=== PATIENT | male | born 1995 | race Caucasian/White ===

== ENCOUNTER 2023-10-19 18:20 | Emergency (ER) | payer BC, SELFPAY ==
[2023-10-19 18:29] VITALS: BP 131/71
[2023-10-19 18:46] LABS: Urine Albumin Trace (Neg - Trace); Urine Bilirubin Negative (Negative); Urine Character Clear (Clear); Urine Color Yellow; Urine Glucose Negative (Negative); Urine Ketone Negative (Negative); Urine Leukocyte Negative (Negative); Urine Nitrite Negative (Negative); Urine Occult Blood Negative (Negative); Urine Urobilinogen Negative (Neg - 1+)
[2023-10-19 18:52] LABS: % Basophils 0.8 % (0-2); % Immature Granulocytes 0.1 % (0-0.5); % Lymphocytes 34.3 % (20.5-51.1); % Monocytes 9.4 % (1.7-9.3); % Neutrophils 43.4 % (42.2-75.2); Absolute Basophils 0.1 10^3/uL (0-0.2); Absolute Eosinophils 0.9 10^3/uL (0-0.7); Absolute Lymphocytes 2.7 10^3/uL (1.2-3.4); Absolute Monocytes 0.7 10^3/uL (0.1-0.6); Absolute Neutrophils 3.4 10^3/uL (1.4-6.5); Hematocrit 43.8 % (39.0-52.0); Hemoglobin 15.3 g/dL (13.0-18.0); Mean Corp Hgb Conc. 34.9 g/dL (33.0-37.0); Mean Corpuscular Hgb 29.3 pg (27.0-31.0); Mean Corpuscular Volume 83.7 fL (80.0-94.0); Mean Platelet Volume 9.4 fL (7.4-10.4); Nucleated Red Blood Cells % 0 % (-); Platelet Count 256 10^3/uL (130-400); Red Blood Cell Count 5.23 10^6/uL (4.70-6.10); Red Cell Dist. Width 12.9 % (11.5-14.5); White Blood Cell Count 7.8 10^3/uL (4.8-10.8)
[2023-10-19 19:05] LABS: ALT (SGPT) 23 U/L (0-50); AST (SGOT) 28 U/L (17-59); Alkaline Phosphatase 69 U/L (38-126); Blood Urea Nitrogen 20 mg/dl (9-20); Calcium 10.1 mg/dl (8.4-10.2); Carbon Dioxide 26 mmol/L (22-30); Chloride 102 mmol/L (98-107); Glucose 87 mg/dl (70-99); Sodium 140 mmol/L (135-145); Total Bilirubin 0.5 mg/dl (0.2-1.3); Total Protein 7.6 g/dl (6.3-8.2); eGFR > 60.00
[2023-10-19 20:12] VITALS: BP 127/76; BMI 23.3
[2023-10-19] MEDS: OMNIPAQUE 50 ML PO (20:54)
[2023-10-19 21:04] VITALS: BP 124/74
[2023-10-19] MEDS: NSS 500 IV (21:06)
--- NOTE | 2023-10-19 21:27 | ED.GENMED ---
History of Present Illness
<Tal Harvey MD - Last Filed: 10/19/23 21:30>
General
Chief Complaint: Abdominal Symptoms
Source: patient
Exam Limitations: none
Time Seen by Provider: 10/19/23 20:41
Nursing documentation reviewed up to this point in time: agreed with
History of Present Illness
History of Present Illness:
Patient presents to ED secondary to persistent right-sided abdominal pain over the past 2 weeks. Abdominal pain described as sharp, nonradiating, worse with certain movements and food, without any alleviating factors. Denies fever or chills.
Denies nausea, vomiting, or diarrhea. However, since onset abdominal pain, patient states that he has had difficult time with bowel movements. Denies trauma. Patient states that his initial pain started while he was driving.
Past History
<Tal Harvey MD - Last Filed: 10/19/23 21:30>
Past History
ED Past Medical History: None
ED Past Surgical History: None
Social History
Tobacco: Non-smoker
Alcohol: None
Drug: None
Living: with family
Employment: Employed
Family History
Family History: Other (Noncontributory)
Review of Systems
<Tal Harvey MD - Last Filed: 10/19/23 21:30>
Review of Systems
Allergies reviewed?: Yes
All Other Systems: ROS reviewed and negative except as documented in HPI and ROS
Constitutional: Reports no symptoms
EENT: Reports no symptoms
ABD/GI: Reports abdominal pain and constipated; Denies nausea, vomiting or diarrhea
: Reports no symptoms
Musculoskeletal: Reports no symptoms
Skin: Reports no symptoms
Neurological: Reports no symptoms
Phy Exam
<Tal Harvey MD - Last Filed: 10/19/23 21:30>
Physical Exam
Physical Exam:
Physical Exam
General: mild distress, not acutely ill. afebrile
Head: nc/at. eomi
Neck: supple. normal range of motion
Abdomen: normal bowel sounds. mild periumbilical/RLQ tenderness to palpation.
Neuro: alert and oriented. no focal neurological deficits
Skin: no rash
Psychiatric: well kept. interactive and cooperative
Extremities: no edema. no calf tenderness.
Course
<Tal Harvey MD - Last Filed: 10/19/23 21:30>
Orders/Labs/Results
Orders:
Orders
10/19/23 18:39
Complete Blood Count/With Diff Urgent
Comprehensive Metabolic Panel Urgent
Urinalysis Reflex To Culture Urgent
Date Specimen was Collected: 10/19/23
Time Specimen was Collected: 18:32
10/19/23 20:49
CT Abd/pel W Iv And Oral Contr Urgent
Comment:
Reason For Exam: periumbilical/RLQ pain
Iohexol [Omnipaque] See Protocol PO NOW STA
10/19/23 20:50
0.9% Sodium Chloride 500 ml [Nss] 500 ml IV BOLUS
10/20/23 00:18
Magnesium Citrate [Citroma] 300 ml PO ONCE ONE
Abnormal Lab Results
10/19/23
18:39
Absolute Monos (auto) 0.7 H 10^3/uL
(0.1-0.6)
Absolute Eos (auto) 0.9 H 10^3/uL
(0-0.7)
Monocytes % 9.4 H %
(1.7-9.3)
Eosinophils % 12.0 H %
(0-6)
10/19/23 18:39
10/19/23 18:39
Vital Signs
Initial and Last Documented VS:
Initial Vital Signs
Temp Pulse Resp BP Pulse Ox
98.4 F 83 16 131/71 98
07/08/24 18:29 10/19/23 18:29 10/19/23 18:29 10/19/23 18:29 10/19/23 18:29
Last Documented Vital Signs
Temp Pulse Resp BP Pulse Ox
98.4 F 83 16 116/70 99
10/19/23 18:29 10/19/23 18:29 10/19/23 18:29 10/19/23 23:00 10/19/23 23:45
<Chetan Thomas, DO - Last Filed: 10/20/23 05:50>
Orders/Labs/Results
Orders:
Orders
10/19/23 18:39
Complete Blood Count/With Diff Urgent
Comprehensive Metabolic Panel Urgent
Urinalysis Reflex To Culture Urgent
Date Specimen was Collected: 10/19/23
Time Specimen was Collected: 18:32
10/19/23 20:49
CT Abd/pel W Iv And Oral Contr Urgent
Comment:
Reason For Exam: periumbilical/RLQ pain
Iohexol [Omnipaque] See Protocol PO NOW STA
10/19/23 20:50
0.9% Sodium Chloride 500 ml [Nss] 500 ml IV BOLUS
10/20/23 00:18
Magnesium Citrate [Citroma] 300 ml PO ONCE ONE
Abnormal Lab Results
10/19/23
18:39
Absolute Monos (auto) 0.7 H 10^3/uL
(0.1-0.6)
Absolute Eos (auto) 0.9 H 10^3/uL
(0-0.7)
Monocytes % 9.4 H %
(1.7-9.3)
Eosinophils % 12.0 H %
(0-6)
10/19/23 18:39
10/19/23 18:39
Vital Signs
Initial and Last Documented VS:
Initial Vital Signs
Temp Pulse Resp BP Pulse Ox
98.4 F 83 16 131/71 98
10/19/23 18:29 10/19/23 18:29 10/19/23 18:29 10/19/23 18:29 10/19/23 18:29
Last Documented Vital Signs
Temp Pulse Resp BP Pulse Ox
98.4 F 83 16 116/70 99
10/19/23 18:29 10/19/23 18:29 10/19/23 18:29 10/19/23 23:00 10/19/23 23:45
<Chetan Thomas DO - Last Filed: 10/20/23 05:50>
*Critical Care Note
Total Time (30-74mins, 75-104mins- exclusive of procedures): Not Applicable
<Chetan Thomas DO - Last Filed: 10/20/23 05:50>
Update Note
Update Note:
CT ABDOMEN AND PELVIS WITH IV AND ORAL CONTRAST
IMPRESSION
No specific findings to account for the patient's abdominal pain.
Normal appendix seen best on the coronal images.
No renal or obstructing ureteral stones. No hydronephrosis or hydroureter.
Bowel is without evidence of obstruction, stool at the upper limits of normal.
Gallbladder is unremarkable. No obvious stones but CT has a diminished sensitivity for noncalcified gallstones. No biliary dilatation.
Case faxed/finalized at 11:49 PM eastern time . If there are any questions please contact me at [phone].
ED Attending Note
<Tal Harvey MD - Last Filed: 10/19/23 21:30>
-
Portions of this chart may have been created with voice recognition software.� Occasional wrong word or��sound alike� substitutions may have occurred due to the inherent limitations of voice recognition software.
Discharge Plan
Departure
Patient Disposition: Home (Routine Discharge)
Date of Disposition: 10/19/23
Time of Disposition: 23:58
Patient with high blood pressure during this ER visit?: Yes
Discharge Problem:
Abdominal pain
Instructions: Abdominal Pain, BLOOD PRESSURE
Prescriptions:
No Action
ibuprofen 800 MG tablet
800 mg PO QIDPRN PRN (Reason: pain, fever. Take with food.) Qty: 30 0RF
Referrals:
[facility] [Outside]
[facility] [Outside]
NONE,* [Family Provider] -
Activity Restrictions/Additional Instructions:
It was a pleasure meeting you and taking part in your care. We hope for your continued healing and wellness.
Please read discharge instructions in their entirety. However, they are for general education and may not describe your exact diagnosis at discharge. Information on your ER visit and medical conditions were discussed with you along with appropriate
follow up information...
If indicated, please take your medications as instructed and indicated on discharge paperwork.
Please schedule a follow up appointment as directed. Call to schedule an appointment
Please return to the emergency department with ANY change in, persisting, or worsening of symptoms. If any of your symptoms do not improve, or persist, or become more severe within 6-12 hours, please return to the emergency department for further
care.
Please return to the emergency department if you develop a headache, neck pain/stiffness, fever greater than 100.4F, chest pain, shortness of breath, persistent nausea, vomiting, slurred speech, difficulty walking, numbness/tingling, weakness, signs
of infection or any other symptoms that are worrisome to you.
If you have any questions or concerns please do not hesitate to call the Hospital at or E-mail me directly at [email or web address]
Interventions
Interventions:
*Risk Screen - Suicide Last Done: 10/19/23 20:13
*General Assessment Last Done: 10/19/23 20:13
*Neglect/Abuse Screening Last Done: 10/19/23 20:13
ED- Fall Risk Assessment Last Done: 10/19/23 20:13
*ED COVID-19 Vaccine History Last Done: 10/19/23 20:13
*Nursing Disposition Last Done: 10/20/23 00:20
ZZ-Lkxdpw-Malvfuhktn Assessment Last Done: 10/19/23 20:13
Discharge Date and Time
Discharge Date/Time: 10/20/23 00:24
Print Language: BERMUDIAN
[2023-10-19 22:00] VITALS: BP 131/72
[2023-10-19 23:00] VITALS: BP 116/70
[2023-10-20] MEDS: CITROMA 300 ML PO (00:23)
== END 2023-10-20 00:24 | disposition home or self-care (01) ==
LOC: EMR 18:20
PROVIDERS: EMERGENCY PHYSICIAN Emergency Medicine
DX: R10.9 Unspecified abdominal pain (principal)
CPT/HCPCS: 99284; 96360; 74177; 80053; 81003; 85025; Q9967